=== PATIENT | male | born 1985 | race Caucasian/White ===

== ENCOUNTER 2024-05-02 08:00 | Day surgery (SDC) | payer MEDICAID ==
[~2024-05-02] VITALS: Ht 170.2 cm; Wt 88.2 kg
[~2024-05-02 08:00] MED LIST: NAPR-1025 PO; OMEP20 PO; SODIUM CHLORIDE 0.9% 1,000 ML ONE
[2024-05-02] MEDS: SODIUM CHLORIDE 0.9% 1,000 ML IV ONE (08:53)
[2024-05-02] MEDS ORDERED: OXYGEN THERAPY IH SCH (09:30)
[2024-05-02] MEDS ORDERED: GLYCOPYRROLATE 0.2 MG/ML VIAL IM ONE (12:00)
[2024-05-02] MEDS ORDERED: PROPOFOL 1% 20 ML VIAL IVP ONE (12:00)
[2024-05-02] MEDS ORDERED: PHENYLEPHRINE HCL 10 MG/ML VIAL IVP ONE (12:00)
[2024-05-02] MEDS ORDERED: EPHEDrine SULFATE 50 MG/ML VIAL IM ONE (12:00)
== END 2024-05-02 11:00 | disposition home or self-care (01) ==
LOC: SURGERY 08:00
PROVIDERS: ATTEND Specialist
DX: R10.13 Epigastric pain (principal); R11.10 Vomiting, unspecified; K29.50 Unspecified chronic gastritis without bleeding; B96.81 Helicobacter pylori [H. pylori] as the cause of diseases classified elsewhere; K21.9 Gastro-esophageal reflux disease without esophagitis; Z79.899 Other long term (current) drug therapy; Z83.3 Family history of diabetes mellitus
CPT/HCPCS: 43239; 88305; J2704; J3490 ×2; J7030